=== PATIENT | male | born 2000 | race Two or more races ===

== ENCOUNTER → 2024-05-31 | Outpatient (CLI) | payer BC ==
[~2024-05-31] MED LIST: ALBUTEROL SULF 2.5 MG/0.5ML(0.5%) NEB SOLN ONE
--- NOTE | 2024-06-01 20:28 | DVHNC2 ---
Procedure - Pulmonary function test interpretation. 05/31/24 1. No obstructive or restrictive ventilatory defect. 2. No significant bronchodilator response. 3. TLC is within normal limits; 7.80 L, 102% of predicted. 4. DLCO is within normal limits; 98% of predicted. MELBA CHANEL MD Jun 01, 2024 20:28
== END | disposition home or self-care (01) ==
LOC: RT 14:59
PROVIDERS: ATTEND Internal Medicine Pulmonary Disease
DX: J45.909 Unspecified asthma, uncomplicated (principal); R06.00 Dyspnea, unspecified
CPT/HCPCS: 94060; 94727; 94729